=== PATIENT | male | born 1990 | race Caucasian/White ===

== ENCOUNTER 2021-09-17 12:43 | Emergency (ER) | payer BC, SELFPAY ==
--- NOTE | ~2021-09-17 | XR_ITS ---
EXAMINATION: XR wrist LT min 3V DATE: 09/17/2021 13:23 INDICATION: Left wrist pain TECHNIQUE: Posteroanterior, ulnar deviation, oblique, and lateral views of the left wrist were obtain ed. COMPARISON: None available FINDINGS: There is no fracture, dislocation, or subluxation. The bones, soft tissues, and joint space s are normal. IMPRESSION: 1. No acute osseous abnormality. Reviewed, dictated and finalized at location A. CUTTER
--- NOTE | 2021-09-17 12:57 | ED.UPPEXIN ---
HPI - Extremity Injury (Upper) General Chief Complaint: Extremity Problem,Nontraumatic Stated Complaint: Lt Wrist Pain Time Seen by Provider: 09/17/21 12:57 Source: patient Mode of arrival: ambulatory Limitations: no limitations History of Present Illness HPI narrative: Jose R Holcomb is a 30 yo male with no PMH who comes to express care with left wrist pain from a possible slip or fall 2 weeks ago at work he has since then worked out in the gym and states that in certain positions of his wrist is painful but has not lost strength or ability to lift however when he goes to the range of motion he has pain with flexion extension at the base of the thumb, he splays his fingers out Related Data Allergies Allergy/AdvReac Type Severity Reaction Status Date / Time No Known Allergies Allergy Verified 09/17/21 13:07 Review of Systems Review of Systems: CONSTITUTIONAL: Denies fever, chills, sweats. EYES: Denies visual changes, redness, discharge. ENT: Denies rhinorrhea, congestion, sore throat, otalgia. CARDIOVASCULAR: Denies chest pain, palpitations, edema. RESPIRATORY: Denies dyspnea, wheezing, cough GASTROINTESTINAL: Denies abdominal pain, nausea, vomiting, diarrhea. GENITOURINARY: Denies dysuria, hematuria, abnormal discharge SKIN: Denies rash or itching. NEUROLOGIC: Denies numbness, or focal weakness. PSYCHIATRIC: Denies anxiety or depression. Left wrist pain PMFSH Past Medical History Medical History No acute medical problems Social History Social History (Updated 09/17/21 @ 13:13 by Angelica Daniels CNP) Smoking status: Never smoker Alcohol intake: current Comments At time of signature, I agree with nursing past medical, surgical, social and family history. There is no relevant family history pertinent to the presenting complaint. Exam Narrative: GENERAL: This is a well-nourished, well-developed patient, in mild distress. HEAD: normocephalic, atraumatic. EYES: Sclera clear/white. Vision is grossly intact. EARS: External ears normal, . Hearing grossly intact. NOSE: External nose normal without nasal discharge, nares without redness, no rhinorrhea. THROAT: Mucous membranes moist, NECK: Neck supple, CARDIOVASCULAR: Regular rate and rhythm without murmurs, gallops, or rubs. RESPIRATORY: Clear to auscultation. Breath sounds equal bilaterally. No wheezes, rales, or rhonchi. GASTROINTESTINAL: Not done SKIN: warm, intact with no suspicious lesions or rash, good texture and turgor. NEURO: awake, alert, and oriented to person, place and time. There were no obvious focal neurologic abnormalities. Steady gait EXTREMITIES: Normal range of motion. 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 X-ray of left wrist done-no fracture dislocation subluxation soft tissues and joint spaces are normal Reviewed with ibuprofen and muscle relaxant for tendinitis and encouraged to get wrist splint such as at [facility] Level of Care: Express Care Visit Vital Signs Vital signs: Vital Signs Temperature 98.9 F 09/17/21 12:59 Pulse Rate 68 09/17/21 12:59 Respiratory Rate 18 09/17/21 12:59 Blood Pressure 136/66 09/17/21 12:59 Pulse Oximetry 99 09/17/21 12:59 Temperature 98.9 F 09/17/21 12:59 Pulse Rate 68 09/17/21 12:59 Respiratory Rate 18 09/17/21 12:59 Blood Pressure 136/66 09/17/21 12:59 Pulse Oximetry 99 09/17/21 12:59 MDM - Extremity Injury (Upper) Differential Diagnosis Differential diagnosis: Likely sprain and strain of wrist, fracture of wrist, fracture of hand and other Critical Care Time Cri
[2021-09-17 12:59] VITALS: BP 136/66; PULSE 68; RESP 18; TEMP 37.2; O2SAT 99
== END 2021-09-17 13:52 | disposition home or self-care (01) ==
PROVIDERS: Emergency Provider Nurse Practitioner
DX: M77.8 Other enthesopathies, not elsewhere classified (principal)
CPT/HCPCS: 73110; 99203; G0463

== ENCOUNTER 2023-08-22 14:38 | Outpatient (CLI) | payer OTHER, SELFPAY ==
--- NOTE | ~2023-08-22 | CT_ITS ---
EXAMINATION: CT abdomen pelvis wo/w con DATE: 08/22/2023 15:13 INDICATION: Hematuria. TECHNIQUE: Computed tomography (CT) of the abdomen and pelvis was performed without and with intraven ous contrast using a total of 130 mL Omnipaque-350 intravenous contrast with a double-bolus technique for simultaneous opacification of the renal parenchyma and renal collecting system. Automated exposu re control and iterative reconstruction technique were employed. The dose-length product was 1766.29 mGy-cm. COMPARISON: None FINDINGS: The visualized portions of the lung bases demonstrate mild atelectasis. No pleural effusion. The hear t size is normal. No pericardial effusion. The liver, gallbladder, spleen, pancreas, adrenal glands, and left kidney are normal. There is a 3 mm stone in right kidney. The ureters are well opacified and are normal. There are no dilated loops of bowel. The appendix is normal. There are no pathologically enlarged lymph nodes. There is no free intraperitoneal fluid. There is mild thoracic and lumbar spon dylosis. IMPRESSION: 1. 3 mm nonobstructing right kidney stone. Reviewed, dictated and finalized at location E. CONDITIONING SHEET METAL INSTALLER
== END 2023-08-22 14:39 ==
LOC: MICIMG 14:40
DX: N20.0 Calculus of kidney (principal); R31.9 Hematuria, unspecified
CPT/HCPCS: 74178; Q9967

== ENCOUNTER 2024-08-18 13:50 | Emergency (ER) | payer OTHER, SELFPAY ==
--- NOTE | ~2024-08-18 | CT_ITS ---
EXAMINATION: CT abdomen pelvis wo con DATE: 08/18/2024 14:21 INDICATION: Right flank and right lower quadrant pain. Nausea and vomiting. TECHNIQUE: Computed tomography (CT) of the abdomen and pelvis was performed without intravenous contr ast. Automated exposure control and iterative reconstruction technique were employed. The dose-length product was 613.79 mGy-cm. COMPARISON: 08/22/2023 FINDINGS: Bases are clear. Heart size is normal. No pericardial or pleural effusion. Liver, gallbladder, spleen , pancreas, bilateral adrenal glands and left kidney are normal. 4 mm nonobstructing right renal ston e. No evident ureteral stones or hydronephrosis however there is some stranding surrounding the urete ropelvic junction which could be related to either recent repositioning of the stone now present in t he right kidney, some interval passage of a prior stone with ascending urinary tract infection. Bowel s including the appendix are normal. Bladder is normal. No free intraperitoneal gas or fluid. No path ologically enlarged abdominal or pelvic lymphadenopathy. Mild to moderate lower thoracic spondylosis. IMPRESSION: 1. Unchanged 4 mm nonobstructing stone in a middle calyx of the right kidney with inflammatory strand ing surrounding the right ureteropelvic junction but without evident obstructing stone or hydronephro sis. Correlate with urinalysis. Reviewed, dictated and finalized at location B. EY DEPARTMENT SUPERVISOR IMPRESSION: 1. Unchanged 4 mm nonobstructing stone in a middle calyx of the right kidney wi th inflammatory stranding surrounding the right ureteropelvic junction but with out evident obstructing stone or hydronephrosis. Correlate with urinalysis.
[2024-08-18 14:00] VITALS: BP 145/75; PULSE 72; RESP 16; TEMP 36.2; O2SAT 99
--- NOTE | 2024-08-18 14:08 | ED_ITS ---
HPI - Abdominal Pain General Chief Complaint: Abdominal Pain Stated Complaint: right flank pain, hx of kidney stones Time Seen by Provider: 08/18/24 14:08 Focused HPI: Patient is a 33 y/o male who presents to the ED with c/o R flank pain. Patient reports history of kidney stones in the past. States this feels similar. He did have an episode of pain around 2 months ago which improved on its own. Began having pain again this morning. Began having nausea, vomiting, unable to keep down any food or drink. Attempted to take ibuprofen and a muscle relaxer, but does not think he kept this down. He does still feel nauseous currently. Denies fevers. Reports decreased urination today with hematuria. Denies dysuria. GENERAL: Well-appearing, obese with BMI of 32.5, and in no acute distress. HEAD: Normocephalic, atraumatic. CHEST: Clear to auscultation. ?No respiratory distress. HEART: Regular rate and rhythm.? ABD: Mild TTP in RLQ, normoactive BS. No significant CVA tenderness to percussion. NEURO: ?Alert and oriented x3. Patient screened in triage and initial orders placed.? ?Additional care and disposition to be based upon?diagnostic testing and treatment. Source: patient Mode of arrival: ambulatory Limitations: no limitations Related Data Allergies Allergy/AdvReac Type Severity Reaction Status Date / Time No Known Allergies Allergy Verified 09/17/21 13:07 [facility] Past Medical History Medical History No acute medical problems Social History Social History Smoking status: Never smoker Alcohol intake: current Course Vital Signs Vital signs: Vital Signs Temperature 97.2 F L 08/18/24 14:00 Pulse Rate 72 08/18/24 14:00 Respiratory Rate 16 08/18/24 14:00 Blood Pressure 145/75 H 08/18/24 14:00 Pulse Oximetry 99 08/18/24 14:00 Oxygen Delivery Room Air 08/18/24 14:00 Temperature 97.2 F L 08/18/24 14:00 Pulse Rate 72 08/18/24 14:00 Respiratory Rate 16 08/18/24 14:00 Blood Pressure 145/75 H 08/18/24 14:00 Pulse Oximetry 99 01/13/25 14:00 Oxygen Delivery Room Air 08/18/24 14:00 MDM - Abdominal Pain MDM Narrative Medical decision making narrative: MSE by OLIVA in triage. Lab Data 08/18/24 14:56 08/18/24 14:56 Labs: Lab Results 08/18/24 08/18/24 Range/Units 14:56 15:00 WBC 11.0 H (4.5-10.0) K/mm3 RBC 5.23 (4.6-6.20) M/mm3 Hgb 15.3 (14.0-18.0) g/dL Hct 45.7 (42.0-52.0) % MCV 87.4 (80-100) fl MCH 29.3 (26-34) pg MCHC 33.5 (32-36) g/dl RDW 11.8 (11.5-14.5) % Plt Count 269 (150-375) k/mm3 MPV 9.7 (7.4-10.4) fl Immature Gran % (Auto) 0.4 (0-0.5) % Neut % (Auto) 86.4 H (45.5-73.1) % Lymph % (Auto) 9.4 L (18.3-44.2) % [place] % (Auto) 3.4 (2.6-8.5) % Eos % (Auto) 0.0 (0-4.4) % Baso % (Auto) 0.4 (0.2-1.2) % Lymph # (Auto) 1.03 (0.9-3.2) K/mm3 [place] # (Auto) 0.4 (0.1-0.6) K/mm3 Eos # (Auto) 0.0 (0-0.3) K/mm3 Baso # (Auto) 0.0 (0.0-0.1) K/mm3 Abs Immat Gran (auto) 0.04 H (0.00-0.031) K/mm3 Absolute Neuts (auto) 9.5 H (1.3-6.7) K/mm3 Absolute Nucleated RBC 0.000 (0.0-0.012) K/mm3 Nucleated RBC % 0.0 (0.0-0.2) % Sodium 137 (137-145) mmol/L Potassium 4.6 (3.4-5.0) mmol/L Chloride 101 (98-107) mmol/L Carbon Dioxide 23 (22-30) mmol/L Anion Gap 13 H (4-12) mmol/L BUN 25 H (9-20) mg/dL Creatinine 1.20 (0.7-1.3) mg/dL Estim Creat Clear Calc 84 ml/min Estimated GFR > 60 (59 - ) Glucose 174 H (65-110) mg/dL Calcium 9.6 (8.4-10.2) mg/dL Total Bilirubin 0.6 (0.2-1.3) mg/dL AST 33 (17-59) U/L ALT 61 H (6-50) U/L Alkaline Phosphatase 81 (38-126) U/L Total Protein 8.0 (6.3-8.2) g/dL Albumin 4.9 (3.5-5.1) g/dL Urine Color Yellow (Yellow) Urine Appearance Clear (Clear) Urine pH 5.5 (5.0-9.0) Ur Specific [place] 1.022 (1.001-1.035) Urine Protein Trace (Negative) mg/dL Urine Glucose (UA) Negative (Negative) mg/dL Urine Ketones Trace H (Negative) mg/dL Ur Blood (Man) 3+ H (Negative) Urine Nitrate Negative (Negative) Urine Bilirubin Negative (Negative) Urine Urobilinogen 0.2 (<2.0) mg/dL Leukocyte Esterase Rfl Negative (Negative) JOSE/UL Urine RBC 51-100 H (0-2) /hpf Urine WBC 0-5 (0-3) /hpf Ur Squamous Epith Cells None seen (Few) /hpf Urine Bacteria None seen /hpf Urine Casts 3-5 Imaging Data Radiologist's impression: ITS Impressions Abdomen/Pelvis CT 08/18/24 14:23 IMPRESSION: 1. Unchanged 4 mm nonobstructing stone in a middle calyx of the right kidney with inflammatory stranding surrounding the right ureteropelvic junction but without evident obstructing stone or hydronephrosis. Correlate with urinalysis. Discharge Plan Discharge Clinical Impression: Kidney stone Hematuria Qualifiers: Hematuria type: unspecified type Qualified Code(s): R31.9 - Hematuria, unspecified Patient Disposition: Home, Self-Care Condition: Stable Instructions: Antibiotic Form, Kidney Stones (ED), Hematuria (ED) Additional Instructions: Return if symptoms are worsening , call your family physician for appointment, take Tylenol, ibuprofen as as needed for aches and pain, continue home medications., encourage fluid intake Patient Language: Telugu Prescriptions: New ciprofloxacin HCl [Cipro] 500 mg tablet 500 mg PO Q12H Qty: 14 0RF No Action ibuprofen 800 mg tablet 800 mg PO TID PRN (Reason: pain) Qty: 30 0RF baclofen 10 mg tablet 10 mg PO TID Qty: 20 0RF Follow-up/Referrals: Randy Sanchez MD [Physician] - 08/19/24 PHYSICIAN NOT ON STAFF,NONSTAFF [Non-Staff] -
[2024-08-18] MEDS: ONDANSETRON HCL ODT 4 MG TABLET PO (14:55)
[2024-08-18 15:03] LABS: Basophils Percent Auto 0.4 % (0.2-1.2); Hematocrit 45.7 % (42.0-52.0); Hemoglobin 15.3 g/dL (14.0-18.0); Immature Granulocyte Absolute 0.04 K/mm3 (0.00-0.031); Immature Granulocyte Percent A 0.4 % (0-0.5); Lymphocytes Absolute Auto 1.03 K/mm3 (0.9-3.2); Lymphocytes Percent Auto 9.4 % (18.3-44.2); Mean Corpuscular HGB Conc 33.5 g/dl (32-36); Mean Corpuscular Hemoglobin 29.3 pg (26-34); Mean Corpuscular Volume 87.4 fl (80-100); Mean Platelet Volume 9.7 fl (7.4-10.4); Monocytes Absolute Auto 0.4 K/mm3 (0.1-0.6); Monocytes Percent Auto 3.4 % (2.6-8.5); Neutrophils Absolute Auto 9.5 K/mm3 (1.3-6.7); Neutrophils Percent Auto 86.4 % (45.5-73.1); Platelet Count Result 269 k/mm3 (150-375); Red Blood Count 5.23 M/mm3 (4.6-6.20); Red Cell Distribution Width 11.8 % (11.5-14.5)
[2024-08-18 15:12] LABS: Add Urine Microscopic? YES; Appearance Urine Clear (Clear); Bacteria Urine None Seen /hpf; Bilirubin Urine Negative (Negative); Blood Urine 3+ (Negative); Color Urine Yellow (Yellow); Glucose Urine UA Negative (Negative); Ketones Urine Trace mg/dL (Negative); Leukocyte Esterase Ur Negative LEU/UL (Negative); Nitrate Urine Negative (Negative); Protein Urine Trace mg/dL (Negative); RBC Urine 51-100 /hpf (0-2); Specific Grav Ur 1.022 (1.001-1.035); Squamous Epithelial Cell Urine None Seen /hpf (Few); Urobilinogen Urine 0.2 mg/dL (<2.0); WBC Urine 0-5 /hpf (0-3); pH Urine 5.5 (5.0-9.0)
[2024-08-18 15:14] LABS: Alanine Aminotransferase 61 U/L (6-50); Albumin Level 4.9 g/dL (3.5-5.1); Alkaline Phosphatase 81 U/L (38-126); Anion Gap 13 mmol/L (4-12); Aspartate Amino Transferase 33 U/L (17-59); Bilirubin,Total 0.6 mg/dL (0.2-1.3); Blood Urea Nitrogen 25 mg/dL (9-20); Calcium 9.6 mg/dL (8.4-10.2); Carbon Dioxide 23 mmol/L (22-30); Chloride 101 mmol/L (98-107); Estimated CRCL calculation 84 ml/min; Estimated Glomerular Filt Rate > 60; Glucose 174 mg/dL (65-110); Potassium 4.6 mmol/L (3.4-5.0); Sodium 137 mmol/L (137-145)
--- NOTE | 2024-08-18 17:22 | ED_ITS ---
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 He denies any fever or chills in the way to the emergency room patient's symptom resolved. Currently patient is asymptomatic Related Data Allergies Allergy/AdvReac Type Severity Reaction Status Date / Time No Known Allergies Allergy Verified 09/17/21 13:07 Review of Systems 2 Review of Systems: All systems reviewed & are unremarkable except as noted in HPI and below PMFSH Past Medical History Medical History No acute medical problems Social History Social History Smoking status: Never smoker Alcohol intake: current Exam 2 Narrative: General appearance: Well-developed, well-nourished Skin: Normal color Chest and respiratory: Airway patent, no respiratory distress, no accessory muscle use Heart: Regular rate/rhythm Abdomen: Soft, nontender, no organomegaly, quiet bowel sounds Musculoskeletal: Normal range of motion, nontender back Neurologic: Alert and oriented ?3, Course Vital Signs Vital signs: Vital Signs Temperature 36.2 C L 08/18/24 14:00 Pulse Rate 72 08/18/24 14:00 Respiratory Rate 16 08/18/24 14:00 Blood Pressure 145/75 H 08/18/24 14:00 Pulse Oximetry 99 08/18/24 14:00 Oxygen Delivery Room Air 08/18/24 14:00 Temperature 36.2 C L 08/18/24 14:00 Pulse Rate 72 08/18/24 14:00 Respiratory Rate 16 08/18/24 14:00 Blood Pressure 145/75 H 08/18/24 14:00 Pulse Oximetry 99 08/18/24 14:00 Oxygen Delivery Room Air 08/18/24 14:00 MDM - Abdominal Pain MDM Narrative Medical decision making narrative: Patient presents with right flank pain Vital signs are stable Physical examination unremarkable Differential diagnosis include passed kidney stone, urinary tract infection, hematuria Blood workup today includes CBC, CMP, lipase showed WBC of 11.0 otherwise insignificant Urinalysis showed 3+ of blood otherwise insignificant CT abdomen and pelvis without contrast showedUnchanged 4 mm nonobstructing stone in a middle calyx of the right kidney with inflammatory stranding surrounding the right ureteropelvic junction but without evident obstructing stone or hydronephrosis. Correlate with urinalysis. Discharged on Cipro and follow-up with urologist. Differential Diagnosis Differential diagnosis: Likely other (As above) Medical Records Attestation: I reviewed the patient's medical records. Lab Data Attestation: I reviewed the patient's lab results. 08/18/24 14:56 08/18/24 14:56 Labs: Lab Results 08/18/24 08/18/24 Range/Units 14:56 15:00 WBC 11.0 H (4.5-10.0) K/mm3 RBC 5.23 (4.6-6.20) M/mm3 Hgb 15.3 (14.0-18.0) g/dL Hct 45.7 (42.0-52.0) % MCV 87.4 (80-100) fl MCH 29.3 (26-34) pg MCHC 33.5 (32-36) g/dl RDW 11.8 (11.5-14.5) % Plt Count 269 (150-375) k/mm3 MPV 9.7 (7.4-10.4) fl Immature Gran % (Auto) 0.4 (0-0.5) % Neut % (Auto) 86.4 H (45.5-73.1) % Lymph % (Auto) 9.4 L (18.3-44.2) % [place] % (Auto) 3.4 (2.6-8.5) % Eos % (Auto) 0.0 (0-4.4) % Baso % (Auto) 0.4 (0.2-1.2) % Lymph # (Auto) 1.03 (0.9-3.2) K/mm3 [place] # (Auto) 0.4 (0.1-0.6) K/mm3 Eos # (Auto) 0.0 (0-0.3) K/mm3 Baso # (Auto) 0.0 (0.0-0.1) K/mm3 Abs Immat Gran (auto) 0.04 H (0.00-0.031) K/mm3 Absolute Neuts (auto) 9.5 H (1.3-6.7) K/mm3 Absolute Nucleated RBC 0.000 (0.0-0.012) K/mm3 Nucleated RBC % 0.0 (0.0-0.2) % Sodium 137 (137-145) mmol/L Potassium 4.6 (3.4-5.0) mmol/L Chloride 101 (98-107) mmol/L Carbon Dioxide 23 (22-30) mmol/L Anion Gap 13 H (4-12) mmol/L BUN 25 H (9-20) mg/dL Creatinine 1.20 (0.7-1.3) mg/dL Estim Creat Clear Calc 84 ml/min Estimated GFR > 60 (59 - ) Glucose 174 H (65-110) mg/dL Calcium 9.6 (8.4-10.2) mg/dL Total Bilirubin 0.6 (0.2-1.3) mg/dL AST 33 (17-59) U/L ALT 61 H (6-50) U/L Alkaline Phosphatase 81 (38-126) U/L Total Protein 8.0 (6.3-8.2) g/dL Albumin 4.9 (3.5-5.1) g/dL Urine Color Yellow (Yellow) Urine Appearance Clear (Clear) Urine pH 5.5 (5.0-9.0) Ur Specific [place] 1.022 (1.001-1.035) Urine Protein Trace (Negative) mg/dL Urine Glucose (UA) Negative (Negative) mg/dL Urine Ketones Trace H (Negative) mg/dL Ur Blood (Man) 3+ H (Negative) Urine Nitrate Negative (Negative) Urine Bilirubin Negative (Negative) Urine Urobilinogen 0.2 (<2.0) mg/dL Leukocyte Esterase Rfl Negative (Negative) JOSE/UL Urine RBC 51-100 H (0-2) /hpf Urine WBC 0-5 (0-3) /hpf Ur Squamous Epith Cells None seen (Few) /hpf Urine Bacteria None seen /hpf Urine Casts 3-5 Imaging Data Radiologist's impression: ITS Impressions Abdomen/Pelvis CT 08/18/24 14:23 IMPRESSION: 1. Unchanged 4 mm nonobstructing stone in a middle calyx of the right kidney with inflammatory stranding surrounding the right ureteropelvic junction but without evident obstructing stone or hydronephrosis. Correlate with urinalysis. Critical Care Time Critical Care Time Critical Care Time: No Discharge Plan Discharge Clinical Impression: Kidney stone, Hematuria Patient Disposition: Home, Self-Care Condition: Stable Instructions: Antibiotic Form, Kidney Stones (ED), Hematuria (ED) Additional Instructions: Return if symptoms are worsening , call your family physician for appointment, take Tylenol, ibuprofen as as needed for aches and pain, continue home medications., encourage fluid intake Patient Language: Persian Prescriptions: New ciprofloxacin HCl [Cipro] 500 mg tablet 500 mg PO Q12H Qty: 14 0RF No Action ibuprofen 800 mg tablet 800 mg PO TID PRN (Reason: pain) Qty: 30 0RF baclofen 10 mg tablet 10 mg PO TID Qty: 20 0RF Follow-up/Referrals: Randy Sanchez MD [Physician] - 08/19/24 PHYSICIAN NOT ON STAFF,NONSTAFF [Non-Staff] -
[2024-08-18 19:01] VITALS: BP 127/74; PULSE 78; RESP 16; O2SAT 100
== END 2024-08-18 19:02 | disposition home or self-care (01) ==
LOC: ANHED 18:23
PROVIDERS: Physician Assistant; Emergency Provider Emergency Medicine
DX: N20.0 Calculus of kidney (principal); R31.9 Hematuria, unspecified
CPT/HCPCS: 36415; 74176; 80053; 81001; 85025; 99284; A9270